=== PATIENT | female | born 1955 | race Caucasian/White ===

== ENCOUNTER 2021-05-26 09:52 | Outpatient (CLI) | payer MEDICARE ==
[2021-05-26 11:18] LABS: Hemoglobin 14.9 g/dL (12.0-15.5); Mean Corpuscular HGB CONC 33.2 g/dL (32.0-36.0); Mean Corpuscular Hemoglobin 29.7 pg (27.0-33.0); Mean Corpuscular Volume 89.6 fl (81.6-98.3); Platelet Count 226 10x3/uL (150-450); RBC Distribution Width 13.7 % (11.5-14.5); Red Blood Cell (RBC) Count 5.01 10x6/uL (3.90-5.03); White Blood Cell (WBC) Count 7.9 10x3/uL (3.5-10.5)
[2021-05-26 23:46] LABS: SARS-CoV-2 PCR by NAA Not Detected (NotDetected)
== END 2021-05-26 09:53 | disposition home or self-care (01) ==
LOC: CSHLAB 09:52
PROVIDERS: ATTEND Obstetrics & Gynecology
DX: Z01.818 Encounter for other preprocedural examination (principal); Z20.822 Contact with and (suspected) exposure to COVID-19; N84.0 Polyp of corpus uteri
CPT/HCPCS: 85027; 86850; 86900; 86901; 93005; 93010; U0003; U0005

== ENCOUNTER 2021-05-31 09:27 | Day surgery (SDC) | payer MEDICARE ==
[2021-05-22 15:25] VITALS: BMI 38.7
[2021-05-26 11:18] LABS: Hemoglobin 14.9 g/dL (12.0-15.5); Mean Corpuscular HGB CONC 33.2 g/dL (32.0-36.0); Mean Corpuscular Hemoglobin 29.7 pg (27.0-33.0); Mean Corpuscular Volume 89.6 fl (81.6-98.3); Platelet Count 226 10x3/uL (150-450); RBC Distribution Width 13.7 % (11.5-14.5); Red Blood Cell (RBC) Count 5.01 10x6/uL (3.90-5.03); White Blood Cell (WBC) Count 7.9 10x3/uL (3.5-10.5)
[2021-05-26 23:46] LABS: SARS-CoV-2 PCR by NAA Not Detected (NotDetected)
[~2021-05-31 09:27] MED LIST: Dexamethasone 4 mg/ml Vial ONE; Fentanyl 250 MCG/5 ML VIAL ONE; Glycopyrrolate 0.2 MG/ML 5 ML SYRINGE ONE; Ketorolac Tromethamine 30 MG/ML VIAL ONE; Lidocaine 1% PF 5 ML VIAL ONE; Midazolam HCl 2 mg/2 ml Vial ONE; Ondansetron PF 4 MG/2 ML Vial ONE; PROPOFOL 20 ML ONE; Rocuronium Bromide 10 MG/ML (10ML VIAL) ONE
[2021-05-31] MEDS ORDERED: ePHEDrine Sulfate 50 MG/10 ML VIAL ONE (09:55)
[2021-05-31] MEDS ORDERED: PHENYLEPHRINE-NS 100 MCG/ML 10 ML SYRINGE ONE (10:00)
[2021-05-31] MEDS ORDERED: PROPOFOL 20 ML ONE ×2 (10:19→11:09)
[2021-05-31] MEDS ORDERED: Lidocaine 1% MPF 2 ML VIAL ONE (10:50)
[2021-05-31] MEDS ORDERED: Lidocaine 1% PF 5 ML VIAL ONE (11:09)
[2021-05-31] MEDS ORDERED: Fentanyl 100 MCG/2 ML VIAL ONE (11:09)
[2021-05-31] MEDS ORDERED: ceFAZolin 2 GM/Dextrose 50 ML IVPB ONE (11:12)
[2021-05-31] MEDS ORDERED: Ondansetron PF 4 MG/2 ML Vial ONE (11:45)
[2021-05-31] MEDS ORDERED: Dexamethasone 4 mg/ml Vial ONE (11:45)
== END 2021-05-31 13:20 | disposition home or self-care (01) ==
LOC: CSHSDC 09:27
PROVIDERS: ATTEND Obstetrics & Gynecology
PROC: 0UB98ZX Excision of Uterus, Via Natural or Artificial Opening Endoscopic, Diagnostic (ICD-10-PCS; principal; 2021-05-31)
DX: N84.0 Polyp of corpus uteri (principal); I10 Essential (primary) hypertension; E03.9 Hypothyroidism, unspecified; Z79.899 Other long term (current) drug therapy; Z20.822 Contact with and (suspected) exposure to COVID-19
CPT/HCPCS: 58558; 85027; 86850; 86900; 86901; U0003; U0005; 36415; 88305; J0690; J1100; J1885; J2250; J2405; J2704; J3010